=== PATIENT | male | born 1975 | race Caucasian/White ===

== ENCOUNTER 2019-11-06 07:59 | Emergency (ER) | payer MEDICAID ==
[~2019-11-06] VITALS: Ht 177.8 cm; Wt 72.7 kg
[2019-11-06 08:02] VITALS: BP 139/103
[2019-11-06] MEDS ORDERED: TETanus/Pertussis (Acell)/Diphther VAC/PF (Tdap-Adult) 0.5ml syringe IMVAC ONE (08:10)
--- NOTE | 2019-11-06 08:35 | NUR ---
to [place] w/ [facility] escort
== END 2019-11-06 09:29 ==
LOC: ER 07:59
DX: S01.112A Laceration without foreign body of left eyelid and periocular area, initial encounter (principal); S01.21XA Laceration without foreign body of nose, initial encounter; Z72.89 Other problems related to lifestyle; V89.1XXA Person injured in unspecified nonmotor-vehicle accident, nontraffic, initial encounter; Y93.89 Activity, other specified; Y92.89 Other specified places as the place of occurrence of the external cause; Y99.8 Other external cause status
CPT/HCPCS: 12011; 70450; 72125; 90471; 90715; 99285